=== PATIENT | female | born 1980 | race African-American/Black ===

== ENCOUNTER 2016-12-06 14:41 | Emergency (ER) | payer BC ==
[~2016-12-06] VITALS: Ht 167.6 cm; Wt 82.6 kg
[~2016-12-06 14:41] MED LIST: AMOXICILLIN875 MG PO; DELSYM COU30 MG/5 ML; PROMETHAZINE-C120 ML PO; ZINC10 MG
[2016-12-06 14:42] VITALS: BP 110/69
[2016-12-06] MEDS ORDERED: SUDAFED 12 HOU120 MG PO (14:43)
[2016-12-06] MEDS ORDERED: TESSALON PERLE100 MG PO (14:58)
[2016-12-06] MEDS ORDERED: VENTOLIN HFA 1818 GM INH (14:58)
[2016-12-06] MEDS ORDERED: FLONASE 0.05%50 MCG NASAL (14:58)
== END 2016-12-06 15:06 | disposition home or self-care (01) ==
LOC: ER 14:41
DX: J04.0 Acute laryngitis (principal); J06.9 Acute upper respiratory infection, unspecified